=== PATIENT | female | born 1975 | race Hispanic/Latino ===

== ENCOUNTER 2018-04-30 21:41 | Emergency (ER) | payer BC ==
[2018-04-30] MEDS ORDERED: Morphine 4 MG/ML VIAL ONE (21:55)
[2018-04-30] MEDS ORDERED: Bacitracin Zinc 1 Packet ONE (22:45)
[2018-04-30] MEDS ORDERED: HYDROcodone/Acetaminophen 10/325 mg Tablet ONE (23:02)
== END 2018-04-30 23:16 | disposition home or self-care (01) ==
LOC: ERS 21:41
DX: T23.252A Burn of second degree of left palm, initial encounter (principal); T23.232A Burn of second degree of multiple left fingers (nail), not including thumb, initial encounter; T23.251A Burn of second degree of right palm, initial encounter; T23.231A Burn of second degree of multiple right fingers (nail), not including thumb, initial encounter; X19.XXXA Contact with other heat and hot substances, initial encounter; Y93.G3 Activity, cooking and baking
CPT/HCPCS: 16020; 90471; 96374; 96375; G0390; J2270

== ENCOUNTER 2019-04-18 13:10 | Outpatient (CLI) | payer BC ==
--- NOTE | 2019-04-18 14:12 | MMO ---
Left Breast MAMMO [facility] LT+[facility]. CLINICAL HISTORY: Patient is 43 years old and is seen for diagnostic exam. The patient has no family history of breast cancer. The patient has no personal history of cancer. VIEWS: The views performed were: left craniocaudal spot compression magnification; left mediolateral spot compression magnification; and left mediolateral with tomosynthesis. FILMS COMPARED: The present examination has been compared to a prior imaging study performed at [facility] on 04/12/2019. This study has been interpreted with the assistance of computer-aided detection. MAMMOGRAM FINDINGS: The breast is heterogeneously dense, which could obscure a lesion on mammography. There are calcifications with grouped or clustered distribution seen in the upper-outer region of the left breast. These calcifications demonstrate "tea cupping" on the ML, compatible with benign milk of calcium. There are no suspicious masses, suspicious calcifications, or new areas of architectural distortion. IMPRESSION: THERE IS NO MAMMOGRAPHIC EVIDENCE OF MALIGNANCY. A ROUTINE FOLLOW-UP MAMMOGRAM IN 1 YEAR IS RECOMMENDED. THE RESULTS OF THIS EXAM WERE SENT TO THE PATIENT. ACR BI-RADS Category 2 - Benign finding MAMMOGRAPHY NOTE: 1. A negative mammogram report should not delay a biopsy if a dominant of clinically suspicious mass is present. 2. Approximately 10% to 15% of breast cancers are not detected by mammography. 3. Adenosis and dense breasts may obscure an underlying neoplasm. Reported by: GIDEON MONTES MD Electonically Signed: [id number]
== END 2019-04-18 13:11 | disposition home or self-care (01) ==
LOC: BICMAMMO 13:10
PROVIDERS: ATTEND Family Medicine
DX: Z12.31 Encounter for screening mammogram for malignant neoplasm of breast (principal)
CPT/HCPCS: G0279